=== PATIENT | female | born 1975 | race Caucasian/White ===

== ENCOUNTER 2021-10-19 09:15 | Outpatient (CLI) | payer BC | END 2021-10-19 09:16 | disposition home or self-care (01) | LOC: CSHMAMMO 09:15 | PROVIDERS: ATTEND Family Medicine | DX: Z12.31 Encounter for screening mammogram for malignant neoplasm of breast (principal); Z98.82 Breast implant status | CPT/HCPCS: 77063; 77067 ==

== ENCOUNTER 2024-03-22 13:06 | Outpatient (CLI) | payer BC | END 2024-03-22 13:07 | disposition home or self-care (01) | LOC: CSHMAMMO 13:06 | PROVIDERS: ATTEND Family Medicine | DX: Z12.31 Encounter for screening mammogram for malignant neoplasm of breast (principal); Z98.890 Other specified postprocedural states | CPT/HCPCS: 77063; 77067 ==

== ENCOUNTER 2025-06-06 08:02 | Outpatient (CLI) | payer BC | END 2025-06-06 08:03 | disposition home or self-care (01) | LOC: CSHULT 08:02 | PROVIDERS: ATTEND Family Medicine | DX: R17 Unspecified jaundice (principal) | CPT/HCPCS: 76700 ==